=== PATIENT | female | born 1970 | race Caucasian/White ===

== ENCOUNTER 2016-07-06 23:27 | Emergency (ER) | payer SELFPAY ==
[~2016-07-06] VITALS: Ht 157.4 cm; Wt 74.8 kg
[~2016-07-06 23:27] MED LIST: ALBUTEROL0.09 MG/A2 IH; CORDROL20 MG PO; NKHM; VIBRAMYCIN100 MG PO
[2016-07-07 00:32] LABS: BASO # 0.1 10*3/uL (0.0-0.1); BASO % 0.5 % (0.0-1.0); EOS % 0.1 % (1.0-4.0); HEMATOCRIT 37.6 % (37.0-47.0); HEMOGLOBIN 12.8 g/dl (12.0-16.0); LYMPH # 1.4 10*3/uL (1.3-4.4); LYMPH % 11.9 % (27.0-41.0); MEAN CELL VOLUME 92.8 fl (81.0-99.0); MEAN CORPUSCULAR HGB 31.6 pg (27.0-31.0); MEAN PLATELET VOLUME 11.2 fl (9.6-12.3); MONO # 0.6 10*3/uL (0.1-1.0); MONO % 4.7 % (3.0-9.0); NEUT % 82.6 % (47.0-73.0); PLATELET COUNT AUTOMATED 191 10*3/uL (130-400); RED BLOOD COUNT 4.05 10*6/uL (4.10-5.10); RED CELL DISTRI WIDTH 12.1 % (0-14.5); WHITE BLOOD COUNT 12.2 10*3/uL (4.8-10.8)
[2016-07-07 00:50] LABS: ALBUMIN 3.8 gm/dl (3.1-4.5); ALKALINE PHOSPHATASE 47 U/L (45-117); BILIRUBIN, TOTAL 0.8 mg/dl (0.2-1.0); BUN 12 mg/dl (7-24); CARBON DIOXIDE 22 mmol/L (21-32); CHLORIDE 107 mmol/L (98-107); EST GLOM FILT AFRICAN AMERICAN > 60 ml/min; GLUCOSE 111 mg/dL (65-99); POTASSIUM 3.7 mmol/L (3.5-5.1); SGOT/AST 11 IU/L (3-35); SGPT/ALT 11 U/L (12-78); SODIUM 139 mmol/L (136-145); TOTAL PROTEIN 6.8 gm/dL (6.4-8.2)
[2016-07-07 00:52] LABS: B-hCG (QUALITATIVE) NEGATIVE (NEGATIVE); C-REACTIVE PROTEIN < 0.29 MG/DL (0-0.3)
== END 2016-07-07 02:55 | disposition home or self-care (01) ==
LOC: ED 23:27
PROVIDERS: Emergency Medicine Emergency Medical Services
DX: B34.9 Viral infection, unspecified (principal); Z88.6 Allergy status to analgesic agent

== ENCOUNTER 2020-05-15 10:18 | Emergency (ER) | payer OTHER ==
[~2020-05-15] VITALS: Ht 157.4 cm; Wt 68.0 kg
[2020-05-15] MEDS ORDERED: Motrin,Rufen800 MG PO (14:29)
[2020-05-15] MEDS ORDERED: CYCLOBENZAPRINE5 M3 PO (14:29)
== END 2020-05-15 14:42 | disposition home or self-care (01) ==
LOC: ED 10:18
DX: S39.012A Strain of muscle, fascia and tendon of lower back, initial encounter (principal); J45.909 Unspecified asthma, uncomplicated; Z88.6 Allergy status to analgesic agent; Z87.891 Personal history of nicotine dependence; W10.8XXA Fall (on) (from) other stairs and steps, initial encounter; Y93.89 Activity, other specified; Y92.89 Other specified places as the place of occurrence of the external cause; Y99.8 Other external cause status

== ENCOUNTER → 2020-09-17 | Outpatient (CLI) | payer OTHER ==
[~2020-09-17] MED LIST changes: +CYCLOBENZAPRINE5 M3 PO; +Motrin,Rufen800 MG PO
== END | disposition home or self-care (01) ==
LOC: MAMMO 13:30
PROVIDERS: ATTEND Internal Medicine Nephrology
DX: Z12.31 Encounter for screening mammogram for malignant neoplasm of breast (principal)

== ENCOUNTER 2021-08-18 09:41 | Emergency (ER) | payer OTHER ==
[~2021-08-18] VITALS: Ht 157.4 cm; Wt 77.1 kg
[2021-08-18] MEDS ORDERED: PREDNISONE10 MG PO (10:54)
[2021-08-18] MEDS ORDERED: CALAMINE LOTIO177 M2 T (10:54)
== END 2021-08-18 10:59 | disposition home or self-care (01) ==
LOC: ED 09:41
DX: L25.3 Unspecified contact dermatitis due to other chemical products (principal); Z88.8 Allergy status to other drugs, medicaments and biological substances

== ENCOUNTER 2021-10-20 19:49 | Emergency (ER) | payer OTHER ==
[~2021-10-20] VITALS: Ht 157.4 cm; Wt 77.1 kg
[~2021-10-20 19:49] MED LIST changes: +CALAMINE LOTIO177 M2 T; +PREDNISONE10 MG PO
[2021-10-20] MEDS ORDERED: Ondansetron4 MG PO ×2 (20:17)
[2021-10-20 20:44] LABS: ALKALINE PHOSPHATASE 76 U/L (45-117); BUN 11 mg/dl (7-24); CHLORIDE 112 mmol/L (98-107); CREATININE 0.91 mg/dL (0.55-1.02); LIPASE 114 U/L (73-393); POTASSIUM 4.2 mmol/L (3.5-5.1); SGOT/AST 21 IU/L (3-35); SGPT/ALT 20 U/L (12-78); SODIUM 140 mmol/L (136-145); TOTAL PROTEIN 6.9 gm/dL (6.4-8.2)
[2021-10-20 21:52] LABS: BASO % 0.6 % (0.0-1.0); HEMATOCRIT 38.3 % (37.0-47.0); LYMPH # 0.9 10*3/uL (1.3-4.4); LYMPH % 12.6 % (27.0-41.0); MEAN CELL VOLUME 93.2 fl (81.0-99.0); MEAN CORPUSCULAR HGB 31.1 pg (27.0-31.0); MEAN CORPUSCULAR HGB CONC 33.4 g/dl (33.0-37.0); MEAN PLATELET VOLUME 11.3 fl (9.6-12.3); MONO # 0.5 10*3/uL (0.1-1.0); MONO % 6.5 % (3.0-9.0); NEUT # 5.5 10*3/uL (2.3-7.9); PLATELET COUNT AUTOMATED 175 10*3/uL (130-400); RED BLOOD COUNT 4.11 10*6/uL (4.10-5.10); RED CELL DISTRI WIDTH 12.5 % (0-14.5); WHITE BLOOD COUNT 6.9 10*3/uL (4.8-10.8)
== END 2021-10-20 21:58 | disposition home or self-care (01) ==
LOC: ED 19:49
PROVIDERS: Emergency Medicine
DX: R11.2 Nausea with vomiting, unspecified (principal); R19.7 Diarrhea, unspecified; Z88.8 Allergy status to other drugs, medicaments and biological substances; Z90.49 Acquired absence of other specified parts of digestive tract

== ENCOUNTER 2021-10-22 02:08 | Emergency (ER) | payer OTHER ==
[~2021-10-22 02:08] MED LIST changes: +Ondansetron4 MG PO
[2021-10-22 02:45] LABS: BASO % 0.2 % (0.0-1.0); HEMATOCRIT 40.2 % (37.0-47.0); LYMPH # 1.4 10*3/uL (1.3-4.4); MEAN CELL VOLUME 90.3 fl (81.0-99.0); MEAN CORPUSCULAR HGB 30.8 pg (27.0-31.0); MEAN CORPUSCULAR HGB CONC 34.1 g/dl (33.0-37.0); MEAN PLATELET VOLUME 11.4 fl (9.6-12.3); MONO # 0.6 10*3/uL (0.1-1.0); MONO % 5.6 % (3.0-9.0); NEUT # 7.9 10*3/uL (2.3-7.9); PLATELET COUNT AUTOMATED 198 10*3/uL (130-400); RED BLOOD COUNT 4.45 10*6/uL (4.10-5.10); RED CELL DISTRI WIDTH 12.5 % (0-14.5); WHITE BLOOD COUNT 9.9 10*3/uL (4.8-10.8)
[2021-10-22 02:59] LABS: ALKALINE PHOSPHATASE 70 U/L (45-117); BUN 17 mg/dl (7-24); CHLORIDE 107 mmol/L (98-107); CREATININE 1.08 mg/dL (0.55-1.02); LIPASE 108 U/L (73-393); POTASSIUM 3.5 mmol/L (3.5-5.1); SGOT/AST 21 IU/L (3-35); SGPT/ALT 21 U/L (12-78); SODIUM 138 mmol/L (136-145); TOTAL PROTEIN 7.2 gm/dL (6.4-8.2)
[2021-10-22] MEDS ORDERED: CARAFATE1 G1 PO ×2 (04:33)
== END 2021-10-22 04:35 | disposition home or self-care (01) ==
LOC: ED 02:08
PROVIDERS: Emergency Medicine
DX: R10.13 Epigastric pain (principal); R11.2 Nausea with vomiting, unspecified; Z90.49 Acquired absence of other specified parts of digestive tract; Z88.5 Allergy status to narcotic agent

== ENCOUNTER 2021-10-24 17:34 | Observation (INO) | payer OTHER ==
[~2021-10-24] VITALS: Ht 157.5 cm; Wt 80.3 kg
[~2021-10-24 17:34] MED LIST changes: +CARAFATE1 G1 PO
[2021-10-24 18:51] VITALS: BP 177/88
[2021-10-24 20:05] LABS: BASO % 0.3 % (0.0-1.0); EOS # 0.1 10*3/uL (0.0-0.4); EOS % 0.7 % (1.0-4.0); HEMATOCRIT 41.8 % (37.0-47.0); LYMPH # 1.9 10*3/uL (1.3-4.4); LYMPH % 21.4 % (27.0-41.0); MEAN CELL VOLUME 89.5 fl (81.0-99.0); MEAN CORPUSCULAR HGB CONC 34.7 g/dl (33.0-37.0); MEAN PLATELET VOLUME 11.4 fl (9.6-12.3); MONO # 0.7 10*3/uL (0.1-1.0); MONO % 8.4 % (3.0-9.0); PLATELET COUNT AUTOMATED 214 10*3/uL (130-400); RED BLOOD COUNT 4.67 10*6/uL (4.10-5.10); RED CELL DISTRI WIDTH 11.9 % (0-14.5); WHITE BLOOD COUNT 8.7 10*3/uL (4.8-10.8)
[2021-10-24 20:21] LABS: ALKALINE PHOSPHATASE 65 U/L (45-117); BUN 16 mg/dl (7-24); CHLORIDE 105 mmol/L (98-107); CREATININE 0.91 mg/dL (0.55-1.02); POTASSIUM 3.4 mmol/L (3.5-5.1); SGOT/AST 23 IU/L (3-35); SGPT/ALT 36 U/L (12-78); SODIUM 139 mmol/L (136-145)
[2021-10-24 20:26] LABS: LIPASE 2125 U/L (73-393)
[2021-10-24 23:20] VITALS: BP 168/90
[2021-10-25 00:02] LABS: BILIRUBIN Negative (Negative); BLOOD Negative (Negative); CLARITY Cloudy (Clear); COLOR Yellow (Yellow); GLUCOSE Negative (Negative); KETONE Trace (Negative); LEUKO ESTERASE Negative (Negative); NITRITE Negative (Negative); SPECIFIC GRAVITY >= 1.030 (1.001-1.030)
[2021-10-25 00:10] LABS: EPITHELIAL CELLS 41-50
[2021-10-25 00:13] LABS: BACTERIA 1+
[2021-10-25 06:28] LABS: BASO % 0.3 % (0.0-1.0); EOS # 0.1 10*3/uL (0.0-0.4); EOS % 1.1 % (1.0-4.0); HEMATOCRIT 40.1 % (37.0-47.0); LYMPH # 2.7 10*3/uL (1.3-4.4); LYMPH % 25.3 % (27.0-41.0); MEAN CELL VOLUME 91.8 fl (81.0-99.0); MEAN CORPUSCULAR HGB 31.4 pg (27.0-31.0); MEAN CORPUSCULAR HGB CONC 34.2 g/dl (33.0-37.0); MEAN PLATELET VOLUME 11.8 fl (9.6-12.3); MONO # 0.8 10*3/uL (0.1-1.0); MONO % 7.7 % (3.0-9.0); NEUT % 65.3 % (47.0-73.0); PLATELET COUNT AUTOMATED 204 10*3/uL (130-400); RED BLOOD COUNT 4.37 10*6/uL (4.10-5.10); RED CELL DISTRI WIDTH 11.9 % (0-14.5); WHITE BLOOD COUNT 10.8 10*3/uL (4.8-10.8)
[2021-10-25 06:51] LABS: BUN 14 mg/dl (7-24); CHLORIDE 109 mmol/L (98-107); CHOLESTEROL 145 mg/dL (<200); POTASSIUM 4.3 mmol/L (3.5-5.1); SGOT/AST 19 IU/L (3-35); SGPT/ALT 31 U/L (12-78); SODIUM 141 mmol/L (136-145); TOTAL PROTEIN 6.4 gm/dL (6.4-8.2)
[2021-10-25 06:54] LABS: ALKALINE PHOSPHATASE 58 U/L (45-117); LDL CHOLESTEROL 77 mg/dL (9-159); TRIGLYCERIDES 118 mg/dl (<150)
[2021-10-25 08:00] VITALS: BP 167/96
[2021-10-25 12:00] VITALS: BP 156/89
[2021-10-25 16:00] VITALS: BP 190/84
[2021-10-25 20:00] VITALS: BP 142/82
[2021-10-26] VITALS: BP 160/73
[2021-10-26 05:43] LABS: ALKALINE PHOSPHATASE 51 U/L (45-117); BUN 10 mg/dl (7-24); CHLORIDE 108 mmol/L (98-107); CREATININE 0.69 mg/dL (0.55-1.02); LIPASE 1652 U/L (73-393); POTASSIUM 3.6 mmol/L (3.5-5.1); SGOT/AST 15 IU/L (3-35); SGPT/ALT 24 U/L (12-78); SODIUM 141 mmol/L (136-145); TOTAL PROTEIN 5.6 gm/dL (6.4-8.2)
[2021-10-26 06:07] LABS: BASO # 0.1 10*3/uL (0.0-0.1); BASO % 0.5 % (0.0-1.0); EOS # 0.2 10*3/uL (0.0-0.4); EOS % 2.3 % (1.0-4.0); LYMPH # 2.2 10*3/uL (1.3-4.4); LYMPH % 22.5 % (27.0-41.0); MEAN CELL VOLUME 91.9 fl (81.0-99.0); MEAN CORPUSCULAR HGB 31.2 pg (27.0-31.0); MEAN PLATELET VOLUME 12.3 fl (9.6-12.3); MONO # 0.6 10*3/uL (0.1-1.0); MONO % 6.6 % (3.0-9.0); NEUT # 6.5 10*3/uL (2.3-7.9); NEUT % 67.8 % (47.0-73.0); PLATELET COUNT AUTOMATED 191 10*3/uL (130-400); RED BLOOD COUNT 3.81 10*6/uL (4.10-5.10); RED CELL DISTRI WIDTH 11.9 % (0-14.5); WHITE BLOOD COUNT 9.6 10*3/uL (4.8-10.8)
[2021-10-26 08:00] VITALS: BP 150/82
[2021-10-26 12:00] VITALS: BP 154/90
[2021-10-26 16:00] VITALS: BP 140/88
[2021-10-26 20:00] VITALS: BP 142/78
[2021-10-27] VITALS: BP 148/82
[2021-10-27 05:49] LABS: ALKALINE PHOSPHATASE 58 U/L (45-117); BUN 10 mg/dl (7-24); CHLORIDE 105 mmol/L (98-107); CREATININE 0.77 mg/dL (0.55-1.02); LIPASE 753 U/L (73-393); POTASSIUM 3.3 mmol/L (3.5-5.1); SGOT/AST 19 IU/L (3-35); SGPT/ALT 23 U/L (12-78); SODIUM 141 mmol/L (136-145); TOTAL PROTEIN 6.2 gm/dL (6.4-8.2)
[2021-10-27 06:06] LABS: BASO # 0.1 10*3/uL (0.0-0.1); BASO % 0.5 % (0.0-1.0); EOS # 0.3 10*3/uL (0.0-0.4); EOS % 2.1 % (1.0-4.0); HEMATOCRIT 37.2 % (37.0-47.0); LYMPH # 2.8 10*3/uL (1.3-4.4); LYMPH % 23.9 % (27.0-41.0); MEAN CELL VOLUME 92.1 fl (81.0-99.0); MEAN CORPUSCULAR HGB 31.7 pg (27.0-31.0); MEAN CORPUSCULAR HGB CONC 34.4 g/dl (33.0-37.0); MEAN PLATELET VOLUME 12.6 fl (9.6-12.3); MONO # 0.8 10*3/uL (0.1-1.0); NEUT # 7.8 10*3/uL (2.3-7.9); NEUT % 66.2 % (47.0-73.0); PLATELET COUNT AUTOMATED 208 10*3/uL (130-400); RED BLOOD COUNT 4.04 10*6/uL (4.10-5.10); RED CELL DISTRI WIDTH 11.9 % (0-14.5); WHITE BLOOD COUNT 11.8 10*3/uL (4.8-10.8)
[2021-10-27 08:00] VITALS: BP 146/90
[2021-10-27 12:00] VITALS: BP 144/82
[2021-10-27 16:00] VITALS: BP 146/88
[2021-10-27 20:00] VITALS: BP 138/82
[2021-10-28] VITALS: BP 128/84
[2021-10-28 06:37] LABS: BASO # 0.1 10*3/uL (0.0-0.1); BASO % 0.6 % (0.0-1.0); EOS # 0.4 10*3/uL (0.0-0.4); EOS % 4.1 % (1.0-4.0); LYMPH % 21.3 % (27.0-41.0); MEAN CELL VOLUME 91.6 fl (81.0-99.0); MEAN CORPUSCULAR HGB 31.6 pg (27.0-31.0); MEAN CORPUSCULAR HGB CONC 34.4 g/dl (33.0-37.0); MEAN PLATELET VOLUME 11.9 fl (9.6-12.3); MONO # 0.6 10*3/uL (0.1-1.0); MONO % 6.7 % (3.0-9.0); NEUT # 6.4 10*3/uL (2.3-7.9); NEUT % 67.2 % (47.0-73.0); PLATELET COUNT AUTOMATED 205 10*3/uL (130-400); RED BLOOD COUNT 3.93 10*6/uL (4.10-5.10); RED CELL DISTRI WIDTH 11.8 % (0-14.5); WHITE BLOOD COUNT 9.6 10*3/uL (4.8-10.8)
[2021-10-28 06:38] LABS: ALKALINE PHOSPHATASE 54 U/L (45-117); BUN 5 mg/dl (7-24); CHLORIDE 105 mmol/L (98-107); CREATININE 0.69 mg/dL (0.55-1.02); LIPASE 505 U/L (73-393); POTASSIUM 3.5 mmol/L (3.5-5.1); SGOT/AST 16 IU/L (3-35); SGPT/ALT 22 U/L (12-78); SODIUM 139 mmol/L (136-145); TOTAL PROTEIN 5.9 gm/dL (6.4-8.2)
[2021-10-28 08:00] VITALS: BP 140/84
[2021-10-28 12:00] VITALS: BP 138/68
[2021-10-28 16:00] VITALS: BP 166/86
[2021-10-28 16:07] LABS: MYCOPLASMA PNEUMONIAE IGG 388 U/mL (0-99); MYCOPLASMA PNEUMONIAE IGM <770 U/mL (0-769)
[2021-10-28 20:00] VITALS: BP 154/82
[2021-10-29] VITALS: BP 142/62
[2021-10-29 08:00] VITALS: BP 120/82
[2021-10-29 12:00] VITALS: BP 140/70
[2021-10-29] MEDS ORDERED: PANTOPRAZOLE SO40 MG PO (15:48)
== END 2021-10-29 18:33 | disposition home or self-care (01) ==
LOC: ED 17:34 → 4E 21:20 → EDHOLD 21:20 → 4E 23:04
PROVIDERS: Emergency Medicine; Internal Medicine Infectious Disease; Internal Medicine Nephrology; Student in an Organized Health Care Education/Training Program; ADMIT Internal Medicine; ATTEND Internal Medicine
DX: U07.1 COVID-19 (principal); K85.90 Acute pancreatitis without necrosis or infection, unspecified; R11.2 Nausea with vomiting, unspecified; E87.6 Hypokalemia; R74.8 Abnormal levels of other serum enzymes; R50.9 Fever, unspecified; J45.998 Other asthma; Z87.891 Personal history of nicotine dependence; Z79.899 Other long term (current) drug therapy

== ENCOUNTER 2022-10-08 19:59 | Inpatient (IN) | payer SELFPAY ==
[~2022-10-08] VITALS: Ht 157.4 cm; Wt 80.8 kg
[~2022-10-08 19:59] MED LIST changes: +PANTOPRAZOLE SO40 MG PO
[2022-10-08 20:45] VITALS: BP 184/82
[2022-10-08 22:45] LABS: HEMATOCRIT 43.6 % (37.0-47.0); MEAN CELL VOLUME 92.2 fl (81.0-99.0); MEAN CORPUSCULAR HGB 31.9 pg (27.0-31.0); MEAN CORPUSCULAR HGB CONC 34.6 g/dl (33.0-37.0); MEAN PLATELET VOLUME 11.7 fl (9.6-12.3); PLATELET COUNT AUTOMATED 246 10*3/uL (130-400); RED BLOOD COUNT 4.73 10*6/uL (4.10-5.10); RED CELL DISTRI WIDTH 12.3 % (0-14.5); WHITE BLOOD COUNT 22.2 10*3/uL (4.8-10.8)
[2022-10-08 22:49] LABS: MANUAL DIFF REFLEX YES
[2022-10-08 23:11] LABS: PLATELET SUFFICIENCY NORMAL (NORMAL); TOTAL CELLS COUNTED 100 #CELLS
[2022-10-08 23:18] LABS: ALKALINE PHOSPHATASE 78 U/L (46-116); BUN 13 mg/dl (9-23); CHLORIDE 106 mmol/L (98-107); LIPASE 31 U/L (12-53); POTASSIUM 3.7 mmol/L (3.4-5.1); SGPT/ALT 11 U/L (10-49); TOTAL PROTEIN 7.4 gm/dL (6.0-8.0)
[2022-10-09 02:45] VITALS: BP 148/77
[2022-10-09 02:46] LABS: BILIRUBIN Negative (Negative); BLOOD Trace-Intact (Negative); CLARITY Clear (Clear); COLOR Yellow (Yellow); GLUCOSE Negative (Negative); KETONE 1+ (Negative); LEUKO ESTERASE Negative (Negative); NITRITE Negative (Negative); SPECIFIC GRAVITY >= 1.030 (1.001-1.030); UROBILINOGEN 0.2 E.U./dl (0.0-1.0)
[2022-10-09 03:07] LABS: BACTERIA TRACE; EPITHELIAL CELLS 31-40; WBC 0-2 wbc/hpf (0-5)
[2022-10-09 07:44] VITALS: BP 134/74
[2022-10-09 08:40] VITALS: BP 178/96
[2022-10-09 12:00] VITALS: BP 177/70
[2022-10-09 16:00] VITALS: BP 138/66
[2022-10-09 20:00] VITALS: BP 171/71
[2022-10-10] VITALS: BP 139/66
[2022-10-10 08:00] VITALS: BP 174/70
[2022-10-10 12:00] VITALS: BP 130/61
[2022-10-10 12:38] LABS: BASO # 0.1 10*3/uL (0.0-0.1); BASO % 0.6 % (0.0-1.0); EOS % 0.1 % (1.0-4.0); HEMATOCRIT 38.9 % (37.0-47.0); LYMPH # 1.6 10*3/uL (1.3-4.4); LYMPH % 12.9 % (27.0-41.0); MEAN CELL VOLUME 93.3 fl (81.0-99.0); MEAN CORPUSCULAR HGB 32.1 pg (27.0-31.0); MEAN CORPUSCULAR HGB CONC 34.4 g/dl (33.0-37.0); MEAN PLATELET VOLUME 11.3 fl (9.6-12.3); MONO # 0.5 10*3/uL (0.1-1.0); MONO % 3.8 % (3.0-9.0); NEUT # 10.1 10*3/uL (2.3-7.9); NEUT % 82.4 % (47.0-73.0); PLATELET COUNT AUTOMATED 189 10*3/uL (130-400); RED BLOOD COUNT 4.17 10*6/uL (4.10-5.10); RED CELL DISTRI WIDTH 12.1 % (0-14.5); WHITE BLOOD COUNT 12.3 10*3/uL (4.8-10.8)
[2022-10-10 13:00] LABS: ALKALINE PHOSPHATASE 64 U/L (46-116); BUN 8 mg/dl (9-23); CHLORIDE 105 mmol/L (98-107); POTASSIUM 3.4 mmol/L (3.4-5.1); SGPT/ALT 15 U/L (10-49); TOTAL PROTEIN 6.4 gm/dL (6.0-8.0)
[2022-10-10 16:00] VITALS: BP 152/92
[2022-10-10 20:00] VITALS: BP 148/76
[2022-10-11] VITALS: BP 147/74
[2022-10-11 08:00] VITALS: BP 127/75
[2022-10-11 12:00] VITALS: BP 135/76
[2022-10-11 16:00] VITALS: BP 159/83
[2022-10-11] MEDS ORDERED: VANCOCIN HCL P125 MG PO (16:05)
[2022-10-11 20:00] VITALS: BP 121/74
[2022-10-12] VITALS: BP 150/96
[2022-10-12 05:19] LABS: BUN 11 mg/dl (9-23); CHLORIDE 109 mmol/L (98-107); POTASSIUM 3.6 mmol/L (3.4-5.1)
[2022-10-12 06:11] LABS: BASO # 0.1 10*3/uL (0.0-0.1); BASO % 0.7 % (0.0-1.0); EOS # 0.4 10*3/uL (0.0-0.4); EOS % 4.2 % (1.0-4.0); HEMATOCRIT 37.4 % (37.0-47.0); LYMPH % 34.8 % (27.0-41.0); MEAN CELL VOLUME 93.7 fl (81.0-99.0); MEAN CORPUSCULAR HGB 30.8 pg (27.0-31.0); MEAN CORPUSCULAR HGB CONC 32.9 g/dl (33.0-37.0); MEAN PLATELET VOLUME 12.4 fl (9.6-12.3); MONO # 0.6 10*3/uL (0.1-1.0); MONO % 7.4 % (3.0-9.0); NEUT # 4.6 10*3/uL (2.3-7.9); NEUT % 52.7 % (47.0-73.0); PLATELET COUNT AUTOMATED 183 10*3/uL (130-400); RED BLOOD COUNT 3.99 10*6/uL (4.10-5.10); RED CELL DISTRI WIDTH 12.2 % (0-14.5); WHITE BLOOD COUNT 8.6 10*3/uL (4.8-10.8)
[2022-10-12 08:00] VITALS: BP 145/90
[2022-10-12 12:00] VITALS: BP 142/86
== END 2022-10-12 14:00 | disposition home or self-care (01) | DRG 373 ==
LOC: ED 19:59 → EDHOLD 10-09 00:11 → 5E 10-09 00:11 → 4E 10-09 18:46
PROVIDERS: Physician Assistant; ADMIT Internal Medicine; ATTEND Internal Medicine
DX: A04.72 Enterocolitis due to Clostridium difficile, not specified as recurrent (principal); I34.1 Nonrheumatic mitral (valve) prolapse; F12.90 Cannabis use, unspecified, uncomplicated; J45.909 Unspecified asthma, uncomplicated; R73.9 Hyperglycemia, unspecified; J45.998 Other asthma; K76.0 Fatty (change of) liver, not elsewhere classified; Z88.6 Allergy status to analgesic agent; Z88.8 Allergy status to other drugs, medicaments and biological substances; Z87.891 Personal history of nicotine dependence; Z90.49 Acquired absence of other specified parts of digestive tract; Z82.49 Family history of ischemic heart disease and other diseases of the circulatory system

== ENCOUNTER 2023-03-04 10:01 | Emergency (ER) | payer SELFPAY ==
[~2023-03-04] VITALS: Wt 79.4 kg
[~2023-03-04 10:01] MED LIST changes: +VANCOCIN HCL P125 MG PO
[2023-03-04 10:29] LABS: BASO % 0.1 % (0.0-1.0); EOS # 0.1 10*3/uL (0.0-0.4); EOS % 0.3 % (1.0-4.0); HEMATOCRIT 40.6 % (37.0-47.0); LYMPH # 1.1 10*3/uL (1.3-4.4); LYMPH % 6.4 % (27.0-41.0); MEAN CORPUSCULAR HGB 31.4 pg (27.0-31.0); MEAN CORPUSCULAR HGB CONC 35.2 g/dl (33.0-37.0); MEAN PLATELET VOLUME 12.2 fl (9.6-12.3); MONO # 1.3 10*3/uL (0.1-1.0); MONO % 7.2 % (3.0-9.0); NEUT # 15.2 10*3/uL (2.3-7.9); NEUT % 85.2 % (47.0-73.0); PLATELET COUNT AUTOMATED 147 10*3/uL (130-400); RED BLOOD COUNT 4.56 10*6/uL (4.10-5.10); RED CELL DISTRI WIDTH 12.7 % (0-14.5); WHITE BLOOD COUNT 17.9 10*3/uL (4.8-10.8)
[2023-03-04 10:40] LABS: ACT PARTIAL THROMBO TIME 29.1 SECONDS (20.0-32.1)
[2023-03-04 11:01] LABS: POTASSIUM 3.2 mmol/L (3.4-5.1); TOTAL PROTEIN 6.9 gm/dL (6.0-8.0)
[2023-03-04 12:53] LABS: BILIRUBIN Negative (Negative); BLOOD 3+ (Negative); CLARITY Turbid (Clear); COLOR Yellow (Yellow); GLUCOSE Negative (Negative); KETONE Negative (Negative); LEUKO ESTERASE 3+ (Negative); NITRITE Negative (Negative); PH 7.5 (4.5-8.0); SPECIFIC GRAVITY 1.015 (1.001-1.030); UROBILINOGEN 0.2 E.U./dl (0.0-1.0)
[2023-03-04 13:04] LABS: BACTERIA 4+; RBC TNTC rbc/hpf (0-2); WBC TNTC wbc/hpf (0-5)
== END 2023-03-05 06:00 | disposition home or self-care (01) ==
LOC: ED 10:01
PROVIDERS: Emergency Medicine
DX: A41.9 Sepsis, unspecified organism (principal); N13.2 Hydronephrosis with renal and ureteral calculous obstruction; N17.9 Acute kidney failure, unspecified; R11.2 Nausea with vomiting, unspecified; R79.82 Elevated C-reactive protein (CRP); N39.0 Urinary tract infection, site not specified; R79.89 Other specified abnormal findings of blood chemistry; Z88.8 Allergy status to other drugs, medicaments and biological substances; Z90.49 Acquired absence of other specified parts of digestive tract; Z98.890 Other specified postprocedural states; Z87.891 Personal history of nicotine dependence; F12.90 Cannabis use, unspecified, uncomplicated; Z20.822 Contact with and (suspected) exposure to COVID-19